=== PATIENT | male | born 1955 | race African-American/Black ===

== ENCOUNTER 2016-10-28 11:19 | Emergency (ER) | payer OTHER ==
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
[~2016-10-28 11:19] MED LIST: ASPIRIN81 MG PO; BACTRIM DS TABL1 TA1 PO; GEODON80 MG PO; INSULIN; KEFLEX PO; KEPPRA500 MG PO; LASIX PO; LIPITOR40 MG PO; LISINOPRIL; LISINOPRIL20 MG PO; METOLAZONE5 MG PO; NAPROSYN250 M1 PO; NITROGLYGERIN0.4 MG SL; NOVOLOG7030 SUBQ; PLAVIX PO; PREDNISONE10 MG PO; SERTRALINE HCL50 MG PO; TYLENOL #3 PO; ZAROXOLYN5 MG PO; ZOLOFT50 MG PO
== END 2016-10-28 12:07 | disposition home or self-care (01) ==
LOC: CED 11:19
DX: S09.90XA Unspecified injury of head, initial encounter (principal); S20.211A Contusion of right front wall of thorax, initial encounter; S00.01XA Abrasion of scalp, initial encounter; I25.10 Atherosclerotic heart disease of native coronary artery without angina pectoris; F17.210 Nicotine dependence, cigarettes, uncomplicated; Z88.0 Allergy status to penicillin; V18.9XXA Unspecified pedal cyclist injured in noncollision transport accident in traffic accident, initial encounter
CPT/HCPCS: 70450; 71010; 71120; 99284

== ENCOUNTER 2016-11-17 16:09 | Emergency (ER) | payer OTHER ==
[2016-11-17 15:48] LABS: BASOPHIL% 0.7 % (0-2.5); EOSINOPHIL% 0.9 % (0.0-7.0); HEMATOCRIT 36.8 % (38.0-50.0); HEMOGLOBIN 11.7 gm/dL (13.0-16.0); LYMPHOCYTE# 1.3 X10e3 (1.0-3.5); LYMPHOCYTE% 26.5 % (17.0-45.0); MEAN CELL VOLUME 71.3 FL (83-96); MEAN CORPUSCULAR HEMOGLOBIN 22.7 PG (28-34); MEAN CORPUSCULAR HGB CONC 31.9 g/dL (30-36); MEAN PLATELET VOLUME 8.7 FL (6.5-11.5); MONOCYTE# 0.3 X10e3 (0-1.0); NEUTROPHIL# 3.1 X10e3 (1.5-7.1); NEUTROPHIL% 64.9 % (40-75); PLATELET COUNT 246 X10e3 (140-420); RED BLOOD COUNT 5.16 X10e (3.90-5.60); RED CELL DISTRIBUTION WIDTH 14.5 % (11.0-15.5); WHITE BLOOD COUNT 4.8 X10e3 (4.0-10.5)
[2016-11-17 15:57] LABS: DIFF IND NO
[2016-11-17 16:14] LABS: BUN/CREATININE RATIO 24.21; CALCIUM SERUM 9.3 mg/dL (8.4-10.2); CREATININE SERUM 1.9 mg/dL (0.6-1.4); GLOM FILT RATE Estimated 42.5 mL/min (>60)
[2016-11-17 16:19] LABS: POTASSIUM 5.6 mmol/L (3.5-5.1)
[2016-11-17 16:37] LABS: URINE SOURCE CLEAN CATCH
[2016-11-17 16:46] LABS: URINE APPEARANCE CLEAR; URINE BILIRUBIN NEG (NEG); URINE BLOOD NEG (NEG); URINE COLOR YELLOW; URINE GLUCOSE >1000 MG/DL (NEG); URINE KETONE NEG (NEG); URINE LEUKOCYTE ESTERASE NEG (NEG); URINE NITRATE NEG (NEG); URINE PROTEIN NEG (NEG); URINE SPECIFIC GRAVITY 1.018 (1.003-1.035); URINE UROBILINOGEN 0.2 MG/DL (NEG)
[2016-11-17 16:57] LABS: CULTURE INDICATED? NO
[2016-11-17] MEDS ORDERED: DOXYCYCLINE HY100 M3 PO (17:09)
[2016-11-17] MEDS ORDERED: DICLOFENAC SODI25 MG PO (17:10)
[2016-11-17] MEDS ORDERED: CLOPIDOGREL75 MG PO (17:10)
[2016-11-17] MEDS ORDERED: ACTOS30 MG PO (17:11)
[2016-11-17] MEDS ORDERED: LIPITOR80 MG PO (17:11)
[2016-11-17] MEDS ORDERED: SEROQUEL XR200 MG PO (17:12)
[2016-11-17 17:31] LABS: POC - CKMB 3.5 ng/mL (0.0-7.9); POC - TROPONIN <0.05 ng/mL (<=0.05)
== END 2016-11-17 19:55 | disposition home or self-care (01) ==
LOC: CED 16:09
PROVIDERS: Emergency Medicine
DX: N17.9 Acute kidney failure, unspecified (principal); E87.5 Hyperkalemia; E11.9 Type 2 diabetes mellitus without complications; E78.5 Hyperlipidemia, unspecified; I10 Essential (primary) hypertension; F20.0 Paranoid schizophrenia; F17.200 Nicotine dependence, unspecified, uncomplicated; Z88.0 Allergy status to penicillin; Z79.899 Other long term (current) drug therapy
CPT/HCPCS: 36415; 80048; 81003; 82553; 84484; 85025; 96360; 96361; 99284

== ENCOUNTER 2016-12-26 14:39 | Emergency (ER) | payer OTHER ==
[~2016-12-26 14:39] MED LIST changes: +ACTOS30 MG PO; +CLOPIDOGREL75 MG PO; +DICLOFENAC SODI25 MG PO; +DOXYCYCLINE HY100 M3 PO; +LIPITOR80 MG PO; +SEROQUEL XR200 MG PO
== END 2016-12-26 16:18 | disposition left against medical advice (07) ==
LOC: CED 14:39 → CFTX 14:39 → CED 16:18
DX: Z53.21 Procedure and treatment not carried out due to patient leaving prior to being seen by health care provider (principal)